=== PATIENT | female | born 1945 | race Caucasian/White ===

== ENCOUNTER 2018-02-23 12:43 | Emergency (ER) | payer OTHER ==
[~2018-02-23] VITALS: Ht 157.5 cm; Wt 79.1 kg
[2018-02-23 13:46] LABS: BASOPHIL (%) 0.3 % (0-1); EOSINOPHIL (%) 0.5 % (0-5); HEMATOCRIT 41.2 % (36.0-46.0); HEMOGLOBIN 14.4 G/DL (11.9-15.5); IMMATURE GRANULOCYTE (%) 0.5 % (0.0-0.7); LYMPHOCYTE (%) 15.1 % (15-42); LYMPHOCYTE COUNT 0.9 K/uL (1.0-2.8); MCV 91.6 FL (83-99); MONOCYTE (%) 13.1 % (3-12); MONOCYTE COUNT 0.8 K/uL (0-0.8); NEUTROPHIL (%) 70.5 % (45-76); NEUTROPHIL COUNT 4.4 K/uL (1.8-6.4); PLATELET COUNT 138 K/uL (156-360); RBC DIS.WIDTH-SD 43.5 % (39-53); WHITE BLOOD COUNT 6.2 K/uL (4.1-10.2)
[2018-02-23 13:55] LABS: ALBUMIN 3.7 g/dL (3.2-4.8); CHLORIDE 104 mEq/L (99-109); POTASSIUM 3.9 mEq/L (3.7-5.4)
[2018-02-23 13:56] LABS: MAGNESIUM 1.8 mg/dL (1.3-2.7); SODIUM 139 mEq/L (136-147)
[2018-02-23 13:58] LABS: GLUCOSE 118 mg/dL (70-99); TOTAL PROTEIN 6.1 g/dL (6.4-8.3)
[2018-02-23 14:00] LABS: TOTAL BILIRUBIN 0.5 mg/dL (0.0-1.0)
[2018-02-23 14:01] LABS: ALKALINE PHOSPHATASE 56 IU/L (3-129)
[2018-02-23 14:02] LABS: CREATININE 0.8 mg/dL (0.6-1.3); GFR ESTIMATE (CALCULATED) > 59 mL/min/
[2018-02-23 14:03] LABS: AST (GOT) 17 IU/L (2-34); UREA NITROGEN (BUN) 13 mg/dL (9-23)
[2018-02-23 14:05] LABS: ALT (GPT) 35 IU/L (3-49); LIPASE 14 U/L (1.0-51.0)
[2018-02-23] MEDS ORDERED: IMODIUM A-D2 M2 PO (15:18)
[2018-02-23] MEDS ORDERED: PHENERGAN25 MG PR (15:18)
[2018-02-23 16:23] VITALS: BP 140/68
== END 2018-02-23 16:27 | disposition home or self-care (01) ==
LOC: EME 12:43
PROVIDERS: Emergency Medicine
DX: R11.2 Nausea with vomiting, unspecified (principal); R19.7 Diarrhea, unspecified; K21.9 Gastro-esophageal reflux disease without esophagitis; J45.909 Unspecified asthma, uncomplicated; G43.909 Migraine, unspecified, not intractable, without status migrainosus; Z85.820 Personal history of malignant melanoma of skin; Z87.19 Personal history of other diseases of the digestive system
CPT/HCPCS: 74177; 80053; 81003; 83605; 83690; 83735; 85025; 85027; 99281; 99285; J2405; J7030